=== PATIENT | female | born 1975 | race Caucasian/White ===

== ENCOUNTER 2018-11-03 22:26 | Emergency (ER) | payer MEDICAID, OTHER ==
[~2018-11-03] VITALS: Ht 154.9 cm; Wt 81.6 kg
[2018-11-03] MEDS ORDERED: ONDANSETRON HCL/PF 4 MG/2 ML VIAL IVP ONE (23:00)
[2018-11-03] MEDS ORDERED: CARISOPRODOL 350 MG TABLET PO ONE (23:00)
[2018-11-03] MEDS ORDERED: HYDROMORPHONE INJ 2 MG/ML DISP.SYRIN IV ONE (23:00)
[2018-11-03] MEDS ORDERED: IV NS 0.9% 1,000 ML BAG IV ONE (23:00)
[2018-11-03] MEDS ORDERED: HYDROMORPHONE 1 MG/1 ML DISP.SYRIN ONE (23:01)
[2018-11-03] MEDS ORDERED: CARISOPRODOL 350 MG TABLET ONE (23:01)
[2018-11-03] MEDS ORDERED: ONDANSETRON HCL/PF 4 MG/2 ML VIAL ONE (23:01)
--- NOTE | 2018-11-03 23:01 | NUR ---
[id number] FR HOME FOR C/O POSTERIOR GAYLE X2 DAYS, NO DIZZINESS, NO BLURRED VISIONS, NAUSEA NO VOMITING, TOOK IBUPROFEN 400MG X 1200 TODAY. PT IS AAOX4. NO S/S OF ACUTE DISTRESS NOTED. RR EVEN AND UNLABORED. FAMILY BEDSIDE. MD BEDSIDE FOR EVAL. WILL CONITNUE TO MONITOR PT
[2018-11-03] MEDS ORDERED: CEFTRIAXONE 1GM BAG (ER ONLY) 50 ML IV ONE (23:20)
--- NOTE | 2018-11-04 00:54 | NUR ---
Patient discharged to home in stable condition. Written and verbal after care instructions given. Patient verbalizes understanding of instruction.IV removed. Catheter intact and site benign. Pressure and 4x4 applied to site. No bleeding noted. STEADY GAIT NOTED ON AMBULATION. NO S/S OF DISTRESS UPON DISCHARGE
[2018-11-04 01:01] VITALS: BP 127/87
== END 2018-11-04 01:02 | disposition home or self-care (01) ==
LOC: ER 22:30
DX: G44.209 Tension-type headache, unspecified, not intractable (principal); M62.830 Muscle spasm of back; I10 Essential (primary) hypertension
CPT/HCPCS: 96374; 96375; 99283; J0696; J1170; J2405; J7030